=== PATIENT | female | born 1990 | race Caucasian/White ===

== ENCOUNTER 2023-01-31 09:34 | Emergency (ER) | payer MEDICAID ==
[~2023-01-31] VITALS: Ht 167.6 cm; Wt 79.0 kg
[2023-01-31 09:44] VITALS: BP 152/93; PULSE 72; RESP 20; TEMP 98.6; O2SAT 100
[2023-01-31] MEDS ORDERED: PYRI50CA MT (12:19)
[2023-01-31] MEDS ORDERED: PREN1COM12 MT (12:20)
[2023-01-31 18:59] LABS: CLARITY URINE TURBID (CLEAR); COLOR URINE YELLOW (YELLOW); GLUCOSE URINE NEGATIVE (NEGATIVE); KETONES URINE NEGATIVE (NEGATIVE); LEUKOCYTE ESTERASE URINE NEGATIVE (NEGATIVE); NITRITE URINE NEGATIVE (NEGATIVE); OCCULT BLOOD URINE NEGATIVE (NEGATIVE); PROTEIN URINE NEGATIVE (NEGATIVE); SPECIFIC GRAVITY URINE 1.019 (1.005-1.030); UROBILINOGEN URINE 0.2 E.U./dL (0.2-1.0)
[2023-01-31 19:03] LABS: RBC URINE 0-2 /hpf (0-2); SQUAMOUS EPITHELIAL CELL URINE 1+ /lpf (RARE/1+)
[2023-01-31 19:24] LABS: BACTERIA URINE 2+; WBC URINE 0-2 /hpf (0-2)
[2023-01-31 19:25] LABS: AMORPHOUS SEDIMENT URINE 1+ /lpf; YEAST URINE RARE
== END 2023-01-31 12:32 | disposition home or self-care (01) ==
LOC: ER 09:47
DX: O26.891 Other specified pregnancy related conditions, first trimester (principal); R11.2 Nausea with vomiting, unspecified; Z3A.01 Less than 8 weeks gestation of pregnancy
CPT/HCPCS: 81003; 81025; 99283